=== PATIENT | female | born 1990 | race Caucasian/White ===

== ENCOUNTER 2017-03-25 02:13 | Emergency (ER) | payer SELFPAY ==
[~2017-03-25] VITALS: Ht 157.5 cm; Wt 64.9 kg
[2017-03-25] MEDS ORDERED: ONDANSETRON HCL/PF 4 MG/2 ML VIAL ONE ×3 (02:31→04:30)
[2017-03-25] MEDS ORDERED: ONDANSETRON HCL/PF 4 MG/2 ML VIAL IM ONE ×3 (03:00→05:00)
--- NOTE | 2017-03-25 05:45 | NUR ---
PT SLEEPING BREATHING LOUDLY/EVEN/UNLABORED, ARROUSABLE TO VOICE, A/O X 4, NO C/O PAIN, ADMITS TO ETOH USE AT [facility]. PER ER MD AMBULATE PT/CHECK GAIT
--- NOTE | 2017-03-25 05:55 | NUR ---
PT AMBULATED THROUGH ER APPORX 20', STEADY GAIT, PT A/O X 4, BREATHING EVEN/UNLABORED, NO C/O PAIN, NAD NOTED, PT RECOGNIZED BOYFRIEND STATES "IT IS OK THAT HE TAKE ME HOME" PER ER MD OK TO D/C. PT D/C UNDER CARE OF BOYFRIEND WITH D/C INTRUCTIONS, ALL PERSONAL BELONGING S WENT WITH PT.
[2017-03-25 06:05] VITALS: BP 133/82
== END 2017-03-25 06:05 | disposition home or self-care (01) ==
LOC: ER 02:17
DX: F10.129 Alcohol abuse with intoxication, unspecified (principal)
CPT/HCPCS: 96372 ×2; 99284; A4606; J2405 ×3; Z7610